=== PATIENT | male | born 1970 | race African-American/Black ===

== ENCOUNTER 2019-10-19 20:32 | Emergency (ER) | payer OTHER ==
[~2019-10-19] VITALS: Ht 182.9 cm; Wt 94.8 kg
[~2019-10-19 20:32] MED LIST: ABILIFY ORAL; ABILIFY10 MG ORAL; PRILOSEC10 M1 ORAL; SEROQUEL25 MG ORAL; SEROQUEL50 MG ORAL; ZOFRAN4 MG ORAL; ZOLOFT25 MG ORAL
--- NOTE | 2019-10-19 20:50 | NUR ---
ED Nurse Note: Recieved pt BIBA from[facility] with c/o etoh abuse, pt is awake, alert and oriented x 4, pt c/o severe abdominal pain at 10/10, states is constant and burning feeling, pt deneis cp, sob, or any toher complaitns, pt is under the influence but very pleasant and cooperative, will resume care as ordered and closely monitor.
--- NOTE | 2019-10-19 21:02 | Emergency Room Report ---
History of Present Illness General Chief Complaint: Pain Source: Patient, EMS Present Illness HPI Patient presents with 3 days of abdominal pain. Is been vomiting. He has been drinking alcohol also. He says that in the past he has had pain like this before. He reports that it is his liver. He rates the pain 10/10 at this time and constant. He denies any diarrhea. Patient has been seen here in the past for alcohol abuse and epigastric pain. Prior CT was 2013 and normal aside from fatty liver. No fevers, chills, sore throat, chest pain, palpitations, dysuria, shortness of breath, joint pain, rashes, depression, anxiety, visual changes, dizziness, headache. Allergies: Coded Allergies: No Known Allergies (Unverified , 11/20/12) COVID-19 Screening Contact w/high risk pt: No Recent Travel to affected area: No Experienced COVID-19 symptoms?: No Patient History Past Medical History: see triage record, old chart reviewed Social History: Reports: smoking, alcohol use, drug use Reviewed Nursing Documentation: PMH: Agreed; PSxH: Agreed Nursing Documentation-PMH Hx Hypertension: Yes Physical Exam Vital Signs Date Time Temp Pulse Resp B/P (MAP) Pulse Ox O2 Delivery O2 Flow Rate FiO2 10/19/19 20:36 97.9 109 18 168/103 (124) 98 Medical Decision Making Diagnostic Impression: Primary Impression: Abdominal pain Qualified Codes: R10.9 - Unspecified abdominal pain Additional Impression: Alcohol abuse ER Course Patient presents with 3 days of abdominal pain with alcohol use. Differential includes gastritis, pancreatitis, gastroenteritis, diverticulitis amongst others. Patient evaluated with EKG, chest x-ray and CT of the abdomen. Patient treated with IV hydration and analgesia with Reglan and Benadryl. EKG sinus rhythm rate 98 right bundle branch block Difficult IV. Will give IM meds. Patient sleeping without abdominal pain. Abdomen soft. Tolerating oral intake. Discussed findings and treatment plan. Patient stable for outpatient observation and treatment. Prior to discharge patient started vomiting. Zofran given. Advised patient to return if continued vomiting or not doing well. Laboratory Tests Test 10/19/19 21:30 10/19/19 22:40 Urine Color Pale yellow Urine Appearance Clear Urine pH 6 (4.5-8.0) Urine Specific [place] 1.015 (1.005-1.035) Urine Protein Negative (NEGATIVE) Urine Glucose (UA) Negative (NEGATIVE) Urine Ketones Negative (NEGATIVE) Urine Blood Negative (NEGATIVE) Urine Nitrite Negative (NEGATIVE) Urine Bilirubin Negative (NEGATIVE) Urine Urobilinogen Normal MG/DL (0.0-1.0) Urine Leukocyte Esterase Negative (NEGATIVE) Urine Opiates Screen Negative (NEGATIVE) Urine Barbiturates Screen Negative (NEGATIVE) Phencyclidine (PCP) Screen Negative (NEGATIVE) Urine Amphetamines Screen Negative (NEGATIVE) Urine Benzodiazepines Screen Positive (NEGATIVE) H Urine Cocaine Screen Negative (NEGATIVE) Urine Marijuana (THC) Screen Negative (NEGATIVE) White Blood Count 4.2 K/UL (4.8-10.8) L Red Blood Count 4.20 M/UL (4.70-6.10) L Hemoglobin 13.2 G/DL (14.2-18.0) L Hematocrit 41.0 % (42.0-52.0) L Mean Corpuscular Volume 97 FL (80-99) Mean Corpuscular Hemoglobin 31.3 PG (27.0-31.0) H Mean Corpuscular Hemoglobin Concent 32.1 G/DL (32.0-36.0) Red Cell Distribution Width 15.2 % (11.6-14.8) H Platelet Count 250 K/UL (150-450) Mean Platelet Volume 7.1 FL (6.5-10.1) Neutrophils (%) (Auto) 33.8 % (45.0-75.0) L Lymphocytes (%) (Auto) 52.1 % (20.0-45.0) H Monocytes (%) (Auto) 9.8 % (1.0-10.0) Eosinophils (%) (Auto) 1.0 % (0.0-3.0) Basophils (%) (Auto) 3.3 % (0.0-2.0) H Prothrombin Time 10.7 SEC (9.30-11.50) Prothrombin Time INR 1.0 (0.9-1.1) Activated Partial Thromboplast Time 33 SEC (23-33) Sodium Level 145 MMOL/L (136-145) Potassium Level 3.9 MMOL/L (3.5-5.1) Chloride Level 107 MMOL/L (98-107) Carbon Dioxide Level 25 MMOL/L (21-32) Anion Gap 13 mmol/L (5-15) Blood Urea Nitrogen 8 mg/dL (7-18) Creatinine 0.9 MG/DL (0.55-1.30) Estimated Glomerular Filtration Rate > 60 mL/min (>60) Glucose Level 87 MG/DL (74-106) Calcium Level 8.9 MG/DL (8.5-10.1) Total Bilirubin 0.4 MG/DL (0.2-1.0) Aspartate Amino Transferase (AST) 50 U/L (15-37) H Alanine Aminotransferase (ALT) 56 U/L (12-78) Alkaline Phosphatase 103 U/L (46-116) Total Creatine Kinase 1571 U/L (26-308) H Total Protein 7.9 G/DL (6.4-8.2) Albumin 4.0 G/DL (3.4-5.0) Globulin 3.9 g/dL Albumin/Globulin Ratio 1.0 (1.0-2.7) Lipase 232 U/L (73-393) Serum Alcohol 260 mg/dL EKG Diagnostic Results Rate: normal Rhythm: NSR ST Segments: no acute changes - Right bundle branch block Rhythm Strip Diag. Results EP Interpretation: yes Rhythm: NSR, no PVC's, no ectopy CT/MRI/US Diagnostic Results CT/MRI/US Diagnostic Results : Imaging Test Ordered: abd/pelvis Impression Bowel is nondilated. No diverticulitis, appendicitis, or free air. No obstructing ureteral calculi or hydronephrosis. Solid organs are otherwise unremarkable on a non-infused exam. Last Vital Signs Date Time Temp Pulse Resp B/P (MAP) Pulse Ox O2 Delivery O2 Flow Rate FiO2 10/20/19 06:10 97.8 79 15 146/85 99 Room Air Status: improved Disposition: HOME, SELF-CARE Condition: Improved Scripts Ondansetron Odt* (ZOFRAN ODT*) 4 Mg Tab.rapdis 4 MG BC EVERY 8 HOURS, #6 TAB 0 Refills Prov: Inocencio Bennett MD 10/20/19 Famotidine* (Pepcid 20mg tablet*) 20 Mg Tablet 20 MG ORAL DAILY, #20 TAB 0 Refills Prov: Inocencio Bennett MD 10/20/19 Mag Hydrox/Aluminum Hyd/Simeth (Mylanta Maximum Strength Liq) 355 Ml Oral.susp 30 ML PO Q6HR, #240 ML Prov: Inocencio Bennett MD 10/20/19 Acetaminophen (Tylenol) 325 Mg Tablet 650 MG ORAL Q6H PRN for Prn Pain/Headache/Temp > 101, #16 TAB 0 Refills Prov: Inocencio Bennett MD 10/20/19 Inocencio Bennett MD Oct 19, 2019 21:01
[2019-10-19] MEDS ORDERED: Morphine Sulfate 4mg/ml Inj (IV USE ONLY) IVP ONE (21:15)
[2019-10-19] MEDS ORDERED: Omnipaque-300 100ml vial INJ PRN (21:15)
[2019-10-19] MEDS ORDERED: Metoclopramide 10mg/2ml Inj IVP ONE (21:15)
[2019-10-19] MEDS ORDERED: DiphenhydrAMINE 50mg/ml Inj IVP ONE (21:15)
[2019-10-19 21:52] LABS: APPEARANCE,URINE CLEAR; BILIRUBIN, URINE NEGATIVE (NEGATIVE); COLOR,URINE PALE YELLOW; GLUCOSE, URINE (UA) NEGATIVE (NEGATIVE); KETONES,URINE NEGATIVE (NEGATIVE); LEUKOCYTE ESTERASE ,URINE NEGATIVE (NEGATIVE); NITRITE,URINE NEGATIVE (NEGATIVE); PH,URINE 6 (4.5-8.0); PROTEIN,URINE NEGATIVE (NEGATIVE); UROBILINOGEN,URINE NORMAL MG/DL (0.0-1.0)
[2019-10-19] MEDS ORDERED: Morphine Sulfate 2mg/ml Inj(IV/IM USE ONLY) IM ONE (22:00)
[2019-10-19 22:15] VITALS: BP 159/96
--- NOTE | 2019-10-19 22:50 | Diagnostic Imaging Report ---
INDICATION: Abdominal pain TECHNIQUE: Continuous helical transaxial imaging of the abdomen and pelvis was obtained from the lung bases to the pubic symphysis. No intravenous contrast was administered. Coronal 2-D reformats were also obtained. Automatic Exposure Control was utilized. Total Dose length Product (DLP): 609.[address] Dose Index Volume (CTDIvol): 21.7 mGy Comparison: none FINDINGS: Lungs: The visualized lung bases are clear. Liver: Unremarkable Gallbladder/biliary system: No gallstones are identified. There is no evidence of intrahepatic or extrahepatic biliary ductal dilatation. Spleen: Unremarkable Pancreas: Unremarkable Kidneys/Bladder: There is no hydronephrosis or nephrolithiasis. There is a rounded 2.3 cm hypodensity in the left kidney which may be cystic. The urinary bladder is unremarkable.. Adrenal glands: Unremarkable Bowel: Appendix is normal. There is no evidence of bowel dilatation. Aorta/IVC: Unremarkable Peritoneum: There is no free fluid. Bones: Unremarkable IMPRESSION: No acute findings. Left renal hypodensity which may be cystic but requires evaluation with ultrasound or contrast examination for confirmation. Evaluation of this is limited on the current study. [facility] has communicated the preliminary results to the Emergency Department. Their findings are largely concordant with this report. Note: Evaluation of solid organs is limited on non contrast imaging. The CT scanner at [facility] is accredited by the [employer] and the scans are performed using dose optimization techniques as appropriate to a performed exam including Automatic Exposure control.
--- NOTE | 2019-10-19 23:00 | NUR ---
ED Nurse Note: Pt medicated as ordered, all imaging completed, labs sent, unable to obtain IV line by all nurses and MD changed orders to PO, pt continues to rest in bed, remains under the influence, using urinal, [place] cp, medicated for abd pain, will continue to closely monitor and d/c pt in am when more sober and safe, pt denies being homeless and gave address.
[2019-10-19 23:08] LABS: BASOPHILS % (AUTO) 3.3 % (0.0-2.0); HEMOGLOBIN 13.2 G/DL (14.2-18.0); LYMPHOCYTES % (AUTO) 52.1 % (20.0-45.0); MEAN CORPUSCULAR VOLUME 97 FL (80-99); MONOCYTES % (AUTO) 9.8 % (1.0-10.0); NEUTROPHILS % (AUTO) 33.8 % (45.0-75.0); PLATELET COUNT 250 K/UL (150-450); RED CELL DISTRIBUTION WIDTH 15.2 % (11.6-14.8); WHITE BLOOD COUNT 4.2 K/UL (4.8-10.8)
[2019-10-19 23:19] LABS: ANION GAP 13 mmol/L (5-15); BLOOD UREA NITROGEN 8 mg/dL (7-18); CALCIUM 8.9 MG/DL (8.5-10.1); CARBON DIOXIDE 25 MMOL/L (21-32); CHLORIDE 107 MMOL/L (98-107); CREATININE 0.9 MG/DL (0.55-1.30); POTASSIUM 3.9 MMOL/L (3.5-5.1); SODIUM 145 MMOL/L (136-145)
[2019-10-19 23:33] LABS: ALANINE AMINOTRANSFERASE 56 U/L (12-78); ALKALINE PHOSPHATASE 103 U/L (46-116); ASPARTATE AMINO TRANSFERASE 50 U/L (15-37); BILIRUBIN,TOTAL 0.4 MG/DL (0.2-1.0); CREATINE KINASE 1571 U/L (26-308)
[2019-10-20] MEDS ORDERED: FAMOTIDINE20 MG ORAL
[2019-10-20] MEDS ORDERED: TYLENOL325 MG ORAL
[2019-10-20] MEDS ORDERED: MYLANTA MAXIMU355 ML PO
[2019-10-20 01:00] VITALS: BP 144/84
--- NOTE | 2019-10-20 03:00 | NUR ---
ED Nurse Note: Pt sleeping, arouses easily to verbal stimuli, denies pain, no sob or labored breathing, v/s stable, will d/c in am when buses running.
[2019-10-20 04:00] VITALS: BP 139/91
[2019-10-20] MEDS ORDERED: Mylanta II UD 30ml ORAL ONE (05:30)
[2019-10-20 05:45] VITALS: BP 146/85
[2019-10-20] MEDS ORDERED: ONDANSETRON ODT4 MG BC (05:55)
[2019-10-20 06:10] VITALS: BP 146/85
--- NOTE | 2019-10-20 06:10 | NUR ---
ER DISCHARGE NOTE: Patient is cleared to be discharged per ERMD, pt is aox4, on room air, with stable vital signs. pt was given dc and prescription instructions, pt was able to verbalize understanding, pt id band removed without complications. pt is able to ambulate with steady gait. pt took all belongings.
== END 2019-10-20 06:10 | disposition home or self-care (01) ==
LOC: EDBD 20:32 → EMR 21:24
DX: R10.9 Unspecified abdominal pain (principal); F10.10 Alcohol abuse, uncomplicated; I10 Essential (primary) hypertension; F17.200 Nicotine dependence, unspecified, uncomplicated
CPT/HCPCS: 36415; 74176; 80053; 80307; 81003; 82550; 83690; 85025; 85610; 85730; 93005; 96372; G0480; J2270; Z7502; 99284; J2765

== ENCOUNTER 2019-10-24 19:49 | Emergency (ER) | payer OTHER ==
[~2019-10-24] VITALS: Ht 188 cm; Wt 108.9 kg
[~2019-10-24 19:49] MED LIST changes: +FAMOTIDINE20 MG ORAL; +MYLANTA MAXIMU355 ML PO; +ONDANSETRON ODT4 MG BC; +TYLENOL325 MG ORAL
[2019-10-24 19:53] VITALS: BP 145/90
--- NOTE | 2019-10-24 19:53 | NUR ---
ED Nurse Note: Patient MARIA ISABEL CARREON from street c/o abdominal pain started today ater eating and drinking beers. Reports vomiting x2, nausea and dark stool x2. Afebrile. Not in any distress. VSS. Will cont to monitor.
--- NOTE | 2019-10-24 19:55 | Emergency Room Report ---
History of Present Illness General Chief Complaint: Abdominal Pain Source: Patient, EMS Present Illness HPI Patient is a 49-year-old male brought in by EMS after increased epigastric pain. Patient reports having a recent alcohol intake. He states he has epigastric pain as well as diffuse abdominal distention. Denies prior history of similar symptoms in the past. He had reportedly drank 2 beers as well as hot dog immediately prior to onset of pain. Denies any vomiting. Denies any fever. Allergies: Coded Allergies: No Known Allergies (Unverified , 11/20/12) COVID-19 Screening Contact w/high risk pt: No Recent Travel to affected area: No Experienced COVID-19 symptoms?: No Patient History Past Medical History: see triage record Reviewed Nursing Documentation: PMH: Agreed; PSxH: Agreed Nursing Documentation-PMH Hx Hypertension: Yes Review of Systems All Other Systems: negative except mentioned in HPI Physical Exam Vital Signs Date Time Temp Pulse Resp B/P (MAP) Pulse Ox O2 Delivery O2 Flow Rate FiO2 10/24/19 19:36 97.2 75 15 145/90 (108) 98 Room Air Sp02 EP Interpretation: reviewed, normal General Appearance: normal inspection, well appearing, no apparent distress, alert, GCS 15 Head: atraumatic ENT: normal ENT inspection, hearing grossly normal, normal voice Neck: normal inspection, full range of motion, supple, no bony tend Respiratory: normal inspection, lungs clear, normal breath sounds, no respiratory distress, no retraction, no wheezing Cardiovascular #1: regular rate, rhythm, no edema Gastrointestinal: normal inspection, normal bowel sounds, non tender, soft, no guarding, no hernia Genitourinary: no CVA tenderness Musculoskeletal: normal inspection, back normal, normal range of motion Neurologic: alert, motor strength/tone normal, cash control specialist III-XII nml as tested, oriented x3, responsive, speech normal, normal inspection Psychiatric: normal inspection, judgement/insight normal, mood/affect normal Medical Decision Making Diagnostic Impression: Primary Impression: Abdominal pain Additional Impression: Alcohol abuse ER Course Patient presented for abdominal pain. Differential diagnoses included ischemic bowel, appendicitis, perforated viscus, abdominal aortic aneurysm, inferior myocardial infarction, viral gastroenteritis among others.Because patient's complexity imaging studies, and laboratory testing ordered. Laboratory testing showed normal electrolytes. Lipase was normal White blood count was normal, hemoglobin is adequate Patient was given pain medications. Patient's pain appears to be alcohol related gastritis. Patient appears to be stable for close outpatient follow up. Patient given prescription for medication for symptomatic treatment. The patient is advised to follow up with primary care doctor in 1-2 days. Patient is advised to return if any worsening condition or if any changes in status that are concerning. This report is dictated with [employer] mechanical service representative software which may occasionally lead to discrepancies related to use of this software. Labs Test 10/24/19 20:13 White Blood Count 5.6 K/UL (4.8-10.8) Red Blood Count 4.18 M/UL (4.70-6.10) Hemoglobin 13.0 G/DL (14.2-18.0) Hematocrit 41.2 % (42.0-52.0) Mean Corpuscular Volume 99 FL (80-99) Mean Corpuscular Hemoglobin 31.1 PG (27.0-31.0) Mean Corpuscular Hemoglobin Concent 31.5 G/DL (32.0-36.0) Red Cell Distribution Width 15.1 % (11.6-14.8) Platelet Count 196 K/UL (150-450) Mean Platelet Volume 6.5 FL (6.5-10.1) Neutrophils (%) (Auto) 54.7 % (45.0-75.0) Lymphocytes (%) (Auto) 32.7 % (20.0-45.0) Monocytes (%) (Auto) 8.0 % (1.0-10.0) Eosinophils (%) (Auto) 1.4 % (0.0-3.0) Basophils (%) (Auto) 3.1 % (0.0-2.0) Sodium Level 143 MMOL/L (136-145) Potassium Level 3.7 MMOL/L (3.5-5.1) Chloride Level 106 MMOL/L (98-107) Carbon Dioxide Level 24 MMOL/L (21-32) Anion Gap 13 mmol/L (5-15) Blood Urea Nitrogen 14 mg/dL (7-18) Creatinine 0.7 MG/DL (0.55-1.30) Estimat Glomerular Filtration Rate > 60 mL/min (>60) Glucose Level 111 MG/DL (74-106) Calcium Level 8.8 MG/DL (8.5-10.1) Total Bilirubin 0.2 MG/DL (0.2-1.0) Aspartate Amino Transf (AST/SGOT) 47 U/L (15-37) Alanine Aminotransferase (ALT/SGPT) 35 U/L (12-78) Alkaline Phosphatase 101 U/L (46-116) Troponin I 0.011 ng/mL (0.000-0.056) Total Protein 7.6 G/DL (6.4-8.2) Albumin 3.8 G/DL (3.4-5.0) Globulin 3.8 g/dL Albumin/Globulin Ratio 1.0 (1.0-2.7) Lipase 381 U/L (73-393) Last Vital Signs Date Time Temp Pulse Resp B/P (MAP) Pulse Ox O2 Delivery O2 Flow Rate FiO2 10/24/19 19:36 97.2 75 15 145/90 (108) 98 Room Air Status: improved Disposition: HOME, SELF-CARE Condition: Stable Scripts Ondansetron (Zofran) 4 Mg Tablet 4 MG ORAL Q6H PRN for Nausea & Vomiting, #20 TAB Prov: Navin Gould MD 10/24/19 Omeprazole Magnesium (PRILOSEC OTC) 20 Mg Tablet. 20 MG ORAL DAILY, #30 TAB Prov: Navin Gould MD 10/24/19 Navin Gould MD Oct 24, 2019 19:54
[2019-10-24] MEDS ORDERED: Mylanta II UD 30ml ORAL ONE (20:00)
[2019-10-24] MEDS ORDERED: Dicyclomine HCl 10mg/5ml oral soln ORAL ONE (20:00)
[2019-10-24] MEDS ORDERED: Lidocaine 2% Visc 15ml soln ORAL ONE (20:00)
[2019-10-24] MEDS ORDERED: Metoclopramide 10mg/2ml Inj IVP ONE (20:00)
--- NOTE | 2019-10-24 20:00 | NUR ---
ED Nurse Note: Blood specimen collected and sent to lab.
[2019-10-24] MEDS ORDERED: HYDROcodone/Acetamin 5/325 tab ORAL ONE (20:45)
[2019-10-24 20:52] LABS: BASOPHILS % (AUTO) 3.1 % (0.0-2.0); EOSINOPHILS % (AUTO) 1.4 % (0.0-3.0); HEMATOCRIT 41.2 % (42.0-52.0); LYMPHOCYTES % (AUTO) 32.7 % (20.0-45.0); MEAN CORPUSCULAR VOLUME 99 FL (80-99); NEUTROPHILS % (AUTO) 54.7 % (45.0-75.0); PLATELET COUNT 196 K/UL (150-450); RED BLOOD COUNT 4.18 M/UL (4.70-6.10); RED CELL DISTRIBUTION WIDTH 15.1 % (11.6-14.8); WHITE BLOOD COUNT 5.6 K/UL (4.8-10.8)
[2019-10-24] MEDS ORDERED: PRILOSEC OTC20 MG ORAL (21:08)
[2019-10-24] MEDS ORDERED: ZOFRAN4 M1 ORAL (21:08)
[2019-10-24 21:20] LABS: ANION GAP 13 mmol/L (5-15); BLOOD UREA NITROGEN 14 mg/dL (7-18); CALCIUM 8.8 MG/DL (8.5-10.1); CARBON DIOXIDE 24 MMOL/L (21-32); CHLORIDE 106 MMOL/L (98-107); CREATININE 0.7 MG/DL (0.55-1.30); POTASSIUM 3.7 MMOL/L (3.5-5.1); SODIUM 143 MMOL/L (136-145)
[2019-10-24 21:24] LABS: ALANINE AMINOTRANSFERASE 35 U/L (12-78); ALBUMIN 3.8 G/DL (3.4-5.0); ALKALINE PHOSPHATASE 101 U/L (46-116); ASPARTATE AMINO TRANSFERASE 47 U/L (15-37); BILIRUBIN,TOTAL 0.2 MG/DL (0.2-1.0)
[2019-10-24 21:30] VITALS: BP 135/77
--- NOTE | 2019-10-24 21:30 | NUR ---
ED Nurse Note: Pt cleared by ERMD for discharge. DC instructions/prescription was given and explained to pt and verbalized understanding of teachings. All medical deviecs such as ID band and IV removed. Pt is AAO x4, ambulatory and left with all personal belongings.
--- NOTE | 2019-10-25 11:56 | Diagnostic Imaging Report ---
Indication: Abdominal pain Comparison: None Single view of the abdomen obtained Findings: Bowel gas pattern is nonspecific. No mass, ectopic calcifications, or abnormal gas collections are identified. The bones are unremarkable. Impression: No acute findings
== END 2019-10-24 21:30 | disposition home or self-care (01) ==
LOC: EDBD 19:49 → EMR 20:00
DX: R10.13 Epigastric pain (principal); F10.10 Alcohol abuse, uncomplicated; I10 Essential (primary) hypertension
CPT/HCPCS: 36415; 74018; 80053; 83690; 84484; 85025; 96374; 96375; J2765; S0028; Z7502; 99284

== ENCOUNTER 2020-04-04 21:26 | Emergency (ER) | payer OTHER ==
[~2020-04-04] VITALS: Ht 185.4 cm; Wt 117.9 kg
[~2020-04-04 21:26] MED LIST changes: +PRILOSEC OTC20 MG ORAL; +ZOFRAN4 M1 ORAL
[2020-04-04] MEDS ORDERED: Dicyclomine HCl 10mg/5ml oral soln ORAL ONE (22:00)
[2020-04-04] MEDS ORDERED: Mylanta II UD 30ml ORAL ONE (22:00)
[2020-04-04] MEDS ORDERED: Lidocaine 2% Visc 15ml soln ORAL ONE (22:00)
--- NOTE | 2020-04-04 22:00 | Emergency Room Report ---
History of Present Illness General Chief Complaint: Abdominal Pain Source: Patient Present Illness HPI Disclaimer: Please note that this report is being documented using DRAGON technology. This can lead to erroneous entry secondary to incorrect interpretation by the dictating instrument. HPI: This a 45-year-old male history of schizophrenia presenting for evaluation of abdominal pain. He arrived by EMS. Patient history is vague. He states he has "all over" abdominal pain. Cannot recall when it started, cannot recall where it started. Denies vomiting, fever, nausea, diarrhea. He reports intermittent dysuria. Denies drainage from the penis, testicular pain, hematuria, flank pain. No prior history of kidney stones or abdominal surgeries. Denies chest pain, shortness of breath, cough, headaches. PMH: Schizophrenia PSH: Cervical disc fusion Allergies: Denied Social Hx: Denied Allergies: Coded Allergies: No Known Allergies (Unverified , 11/20/12) COVID-19 Screening Contact w/high risk pt: No Recent Travel to affected area: No Experienced COVID-19 symptoms?: No COVID-19 Testing performed RESEARCH METHODOLOGIST: No Nursing Documentation-PMH Hx Hypertension: Yes History Of Psychiatric Problem: Yes Review of Systems All Other Systems: negative except mentioned in HPI Physical Exam Vital Signs Date Time Temp Pulse Resp B/P (MAP) Pulse Ox O2 Delivery O2 Flow Rate FiO2 04/04/20 21:25 98.4 100 20 140/98 (112) 99 Room Air General: Awake and alert, no acute distress HEENT: NC/AT. EOMI. Cardiovascular: RRR. S1 and S2 normal. No murmur appreciated Resp: Normal work of breathing. No cough, wheezing or crackles appreciated Abdomen: Abdomen is soft, nondistended. Diffusely tender to palpation however patient wincing in pain prior to my touching of the abdomen. On repeated palpation in the same quadrants there is no tenderness. Fluctuating exam. Skin: Intact. No abrasions, laceration or rash over the exposed skin MSK: Normal tone and bulk. Moving all extremities. No obvious deformity. Neuro: Awake and alert. Mentating appropriately. Medical Decision Making Diagnostic Impression: Primary Impression: Alcohol intoxication Additional Impression: Abdominal pain ER Course Is a 50-year-old male presenting for evaluation of abdominal pain. He arrives with stable vital signs and no acute distress. Differential includes but not limited to gastritis, gastroenteritis, cholecystitis, pancreatitis, intoxication , viral syndrome among others. Patient's physical exam is fluctuating as sometimes he has pain all over the abdomen otherwise he does not. His history is vague and changing. Will order labs and treat with GI cocktail and famotidine. Do not see need for emergent imaging at this time but will reevaluate frequently. 0100: Labs have returned within normal limits. No evidence of acute pancreatitis. He is intoxicated with elevated alcohol level. On reevaluation the patient is sleeping comfortably. Will start the patient on thiamine, folate. Potassium was repleted as it was just below normal values. Referred to outpatient clinic. Will allow to metabolize in the ED and discharged once he is clinically sober. Laboratory Tests Test 04/04/20 23:03 04/04/20 23:12 White Blood Count 3.8 K/UL (4.8-10.8) L Red Blood Count 4.26 M/UL (4.70-6.10) L Hemoglobin 13.0 G/DL (14.2-18.0) L Hematocrit 40.5 % (42.0-52.0) L Mean Corpuscular Volume 95 FL (80-99) Mean Corpuscular Hemoglobin 30.6 PG (27.0-31.0) Mean Corpuscular Hemoglobin Concent 32.2 G/DL (32.0-36.0) Red Cell Distribution Width 13.8 % (11.6-14.8) Platelet Count 205 K/UL (150-450) Mean Platelet Volume 6.2 FL (6.5-10.1) L Neutrophils (%) (Auto) 41.7 % (45.0-75.0) L Lymphocytes (%) (Auto) 44.3 % (20.0-45.0) Monocytes (%) (Auto) 9.7 % (1.0-10.0) Eosinophils (%) (Auto) 0.9 % (0.0-3.0) Basophils (%) (Auto) 3.5 % (0.0-2.0) H Sodium Level 146 MMOL/L (136-145) H Potassium Level 3.2 MMOL/L (3.5-5.1) L Chloride Level 108 MMOL/L (98-107) H Carbon Dioxide Level 28 MMOL/L (21-32) Anion Gap 10 mmol/L (5-15) Blood Urea Nitrogen 8 mg/dL (7-18) Creatinine 0.9 MG/DL (0.55-1.30) Estimated Glomerular Filtration Rate > 60 mL/min (>60) Glucose Level 97 MG/DL (74-106) Calcium Level 8.2 MG/DL (8.5-10.1) L Magnesium Level 2.2 MG/DL (1.8-2.4) Total Bilirubin 0.7 MG/DL (0.2-1.0) Aspartate Amino Transferase (AST) 40 U/L (15-37) H Alanine Aminotransferase (ALT) 42 U/L (12-78) Alkaline Phosphatase 95 U/L (46-116) Total Protein 7.6 G/DL (6.4-8.2) Albumin 4.0 G/DL (3.4-5.0) Globulin 3.6 g/dL Albumin/Globulin Ratio 1.1 (1.0-2.7) Lipase 165 U/L (73-393) Serum Alcohol 335 mg/dL Urine Color Yellow Urine Appearance Clear Urine pH 5 (4.5-8.0) Urine Specific [place] 1.015 (1.005-1.035) Urine Protein 1+ (NEGATIVE) H Urine Glucose (UA) Negative (NEGATIVE) Urine Ketones Negative (NEGATIVE) Urine Blood Negative (NEGATIVE) Urine Nitrite Negative (NEGATIVE) Urine Bilirubin Negative (NEGATIVE) Urine Urobilinogen Normal MG/DL (0.0-1.0) Urine Leukocyte Esterase Negative (NEGATIVE) Urine RBC 0 /HPF (0 - 0) Urine WBC 0-2 /HPF (0 - 0) Urine Squamous Epithelial Cells None /LPF (NONE/OCC) Urine Bacteria Occasional /HPF (NONE) Urine Opiates Screen Negative (NEGATIVE) Urine Barbiturates Screen Negative (NEGATIVE) Phencyclidine (PCP) Screen Negative (NEGATIVE) Urine Amphetamines Screen Negative (NEGATIVE) Urine Benzodiazepines Screen Negative (NEGATIVE) Urine Cocaine Screen Negative (NEGATIVE) Urine Marijuana (THC) Screen Negative (NEGATIVE) Last Vital Signs Date Time Temp Pulse Resp B/P (MAP) Pulse Ox O2 Delivery O2 Flow Rate FiO2 04/04/20 21:25 98.4 100 20 140/98 (112) 99 Room Air Disposition: HOME, SELF-CARE Condition: Stable Scripts Thiamine Hcl* (VITAMIN B-1*) 100 Mg Tablet 100 MG ORAL DAILY, #30 TAB 0 Refills Prov: Krish Wall MD 04/04/20 Folic Acid* (FOLIC ACID*) 1 Mg Tablet 1 MG ORAL DAILY for 30 Days, #30 TAB Prov: Krish Wall MD 04/04/20 Famotidine* (Pepcid 20mg tablet*) 20 Mg Tablet 20 MG ORAL DAILY, #30 TAB 0 Refills Prov: Krish Wall MD 04/04/20 Krish Wall MD Apr 04, 2020 22:00
[2020-04-04 22:14] VITALS: BP 133/92
[2020-04-04] MEDS ORDERED: Ketorolac 30mg Inj IM ONE (23:00)
[2020-04-04 23:06] LABS: BASOPHILS % (AUTO) 3.5 % (0.0-2.0); EOSINOPHILS % (AUTO) 0.9 % (0.0-3.0); HEMATOCRIT 40.5 % (42.0-52.0); LYMPHOCYTES % (AUTO) 44.3 % (20.0-45.0); MEAN CORPUSCULAR VOLUME 95 FL (80-99); MONOCYTES % (AUTO) 9.7 % (1.0-10.0); NEUTROPHILS % (AUTO) 41.7 % (45.0-75.0); PLATELET COUNT 205 K/UL (150-450); RED BLOOD COUNT 4.26 M/UL (4.70-6.10); RED CELL DISTRIBUTION WIDTH 13.8 % (11.6-14.8); WHITE BLOOD COUNT 3.8 K/UL (4.8-10.8)
[2020-04-04 23:24] LABS: APPEARANCE,URINE CLEAR; BILIRUBIN, URINE NEGATIVE (NEGATIVE); GLUCOSE, URINE (UA) NEGATIVE (NEGATIVE); KETONES,URINE NEGATIVE (NEGATIVE); LEUKOCYTE ESTERASE ,URINE NEGATIVE (NEGATIVE); NITRITE,URINE NEGATIVE (NEGATIVE); PH,URINE 5 (4.5-8.0); PROTEIN,URINE 1+ (NEGATIVE); UROBILINOGEN,URINE NORMAL MG/DL (0.0-1.0)
[2020-04-04 23:24] LABS: ANION GAP 10 mmol/L (5-15); BLOOD UREA NITROGEN 8 mg/dL (7-18); CALCIUM 8.2 MG/DL (8.5-10.1); CARBON DIOXIDE 28 MMOL/L (21-32); CHLORIDE 108 MMOL/L (98-107); CREATININE 0.9 MG/DL (0.55-1.30); POTASSIUM 3.2 MMOL/L (3.5-5.1); SODIUM 146 MMOL/L (136-145)
[2020-04-04 23:28] LABS: ALANINE AMINOTRANSFERASE 42 U/L (12-78); ALBUMIN/GLOBULIN RATIO 1.1 (1.0-2.7); ALKALINE PHOSPHATASE 95 U/L (46-116); ASPARTATE AMINO TRANSFERASE 40 U/L (15-37); BILIRUBIN,TOTAL 0.7 MG/DL (0.2-1.0)
[2020-04-04 23:38] LABS: COLOR,URINE YELLOW
[2020-04-04] MEDS ORDERED: FOLIC ACID1 MG ORAL (23:39)
[2020-04-04] MEDS ORDERED: FAMOTIDINE20 MG ORAL (23:39)
[2020-04-04] MEDS ORDERED: VITAMIN B-1100 MG ORAL (23:39)
[2020-04-05 05:10] VITALS: BP 132/79
== END 2020-04-05 05:10 | disposition home or self-care (01) ==
LOC: EDBD 21:26 → EMR 22:07
DX: R10.9 Unspecified abdominal pain (principal); F10.129 Alcohol abuse with intoxication, unspecified; I10 Essential (primary) hypertension; F20.9 Schizophrenia, unspecified; Z98.1 Arthrodesis status
CPT/HCPCS: 36415; 80053; 80307; 81003; 83690; 83735; 85025; 96372; G0480; J1885; Z7502; 99284; J2405; J8499

== ENCOUNTER 2020-06-06 02:16 | Emergency (ER) | payer OTHER ==
[~2020-06-06] VITALS: Ht 175.3 cm; Wt 79.4 kg
[~2020-06-06 02:16] MED LIST changes: +FOLIC ACID1 MG ORAL; +VITAMIN B-1100 MG ORAL
[2020-06-06 02:35] VITALS: BP 139/89
--- NOTE | 2020-06-06 02:36 | Emergency Room Report ---
History of Present Illness General Chief Complaint: Abdominal Pain Source: Patient, Medical Record, EMS Present Illness HPI Is a 50-year-old male with a history of alcohol abuse. He is also homeless. He presents with chief plaint abdominal pain. He called 911. He has been drinking tonight. Pain is diffuse in nature. This is a chronic issue. Is been to the [facility] and other hospital for this before. The pain is diffuse. Nothing made it better. Nothing made it worse. History is limited because he just said that he wants to sleep. He does not want any thing to be done. 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 Patient History Past Medical History: see triage record, old chart reviewed Past Surgical History: other Pertinent Family History: none Social History: Reports: alcohol use Immunizations: other Reviewed Nursing Documentation: PMH: Agreed; PSxH: Agreed Nursing Documentation-PMH Past Medical History: No History, Except For Hx Hypertension: Yes History Of Psychiatric Problem: Yes Hx Seizures: Yes Review of Systems Gastrointestinal: Reports: abdominal pain All Other Systems: limited - Secondary to intoxication Physical Exam Vital Signs Date Time Temp Pulse Resp B/P (MAP) Pulse Ox O2 Delivery O2 Flow Rate FiO2 06/06/20 02:17 98.1 108 22 139/89 (106) 99 Room Air Vitals unremarkable Sp02 EP Interpretation: reviewed, normal General Appearance: well appearing, no apparent distress, alert Head: normocephalic, atraumatic Eyes: bilateral eye PERRL, bilateral eye EOMI ENT: hearing grossly normal, normal pharynx Neck: full range of motion, supple, no meningismus Respiratory: chest non-tender, lungs clear, normal breath sounds Cardiovascular #1: regular rate, rhythm, no murmur Gastrointestinal: normal bowel sounds, no mass, no organomegaly, no bruit, non- distended, tenderness - Mild, diffuse Musculoskeletal: back normal, normal range of motion, gait/station normal Psychiatric: mood/affect normal Medical Decision Making Homeless Attestation I, The treating physician, Dr Riley James, has assessed and agrees that patient is medically stable for discharge to an outpatient disposition. Diagnostic Impression: Primary Impression: Abdominal pain Qualified Codes: R10.84 - Generalized abdominal pain Additional Impression: Alcohol intoxication Qualified Codes: F10.920 - Alcohol use, unspecified with intoxication, uncomplicated ER Course This patient presents with abdominal pain and alcohol abuse with intoxication. He is sleeping comfortably. He does not want anything to be done. Recent CT scan just showed fatty liver. He has IV eric on his extremities and also EKG leave eric on his chest and abdomen from other hospital visits. Patient slept through the night. He is now awake. Eating and drinking without any problem. Will discharge home. Last Vital Signs Date Time Temp Pulse Resp B/P (MAP) Pulse Ox O2 Delivery O2 Flow Rate FiO2 06/06/20 02:17 98.1 108 22 139/89 (106) 99 Room Air Status: improved Disposition: OTH-HOMELESS Condition: Stable Referrals: [facility],REFERRING (PCP) Additional Instructions: Abstain from alcohol. Go to rehab. Follow-up with your doctor in 7 days. Return if worse. Riley James MD Jun 06, 2020 02:36
[2020-06-06 06:00] VITALS: BP 139/89
== END 2020-06-06 06:00 | disposition other institution (70) ==
LOC: EDUNIT# 02:16 → EDBD 02:16 → EMR 02:32
DX: R10.84 Generalized abdominal pain (principal); F10.120 Alcohol abuse with intoxication, uncomplicated; I10 Essential (primary) hypertension; Z59.0 Homelessness
CPT/HCPCS: 99282

== ENCOUNTER 2020-07-10 20:12 | Emergency (ER) | payer OTHER ==
[~2020-07-10] VITALS: Ht 172.7 cm; Wt 72.6 kg
[2020-07-10 20:20] VITALS: BP 172/96
--- NOTE | 2020-07-10 20:20 | NUR ---
Nurse Note: Pt brought in by ambulance 813 c/o chronic abd pain since but pain getting worse. Pt denies n/v. Denies blood in urine and emesis. Pt stated he was drinking ETOH all day. Pt ambultory with assistance, able to urinate.
--- NOTE | 2020-07-10 20:42 | Emergency Room Report ---
History of Present Illness General Chief Complaint: Abdominal Pain Present Illness HPI Patient is a 50-year-old male who presents for increased generalized abdominal pain. Patient had previous history of alcohol abuse. Reportedly had increased pain throughout his entire abdomen. Previous ER visits for similar type symptoms. No exacerbating or alleviating factors. Patient reports drinking throughout the day. Patient was brought in by EMS. 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: No (Navin Gould MD) Patient History Past Medical History: see triage record Reviewed Nursing Documentation: PMH: Agreed; PSxH: Agreed (Navin Gould MD) Nursing Documentation-PMH Hx Hypertension: Yes History Of Psychiatric Problem: Yes - psych Hx Seizures: Yes (Navin Gould MD) Review of Systems All Other Systems: negative except mentioned in HPI (Navin Gould MD) Physical Exam Vital Signs Date Time Temp Pulse Resp B/P (MAP) Pulse Ox O2 Delivery O2 Flow Rate FiO2 07/10/20 20:15 98.4 100 16 172/96 (121) 98 Room Air Sp02 EP Interpretation: reviewed, normal General Appearance: normal inspection, well appearing, no apparent distress, alert, GCS 15, obese Head: atraumatic ENT: normal ENT inspection, hearing grossly normal, normal voice Neck: normal inspection, full range of motion, supple, no bony tend Respiratory: normal inspection, lungs clear, normal breath sounds, no resp iratory distress, no retraction, no wheezing Cardiovascular #1: regular rate, rhythm, no edema Gastrointestinal: normal inspection, normal bowel sounds, non tender, soft, no guarding, no hernia Genitourinary: no CVA tenderness Musculoskeletal: normal inspection, back normal, normal range of motion Neurologic: alert, motor strength/tone normal, 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 (Riley James MD) Diagnostic Impression: Primary Impression: Abdominal pain Qualified Codes: R10.84 - Generalized abdominal pain Additional Impressions: Alcohol abuse Alcohol intoxication Qualified Codes: F10.920 - Alcohol use, unspecified with intoxication, uncomplicated ER Course Patient presented for generalized abdominal pain. Differential diagnosis include was not limited to gastritis, peptic ulcer disease, pancreatitis among others. Because of complexity of patient's case laboratory tests and imaging studies were ordered. Patient has prior history of recent alcohol abuse and patient's abdominal pain has been evaluated in the past with CT imaging which showed only fatty liver. Laboratory testing was ordered. Patient given IV acid blockers as well as IV fluids. Labs Test 07/10/20 20:44 White Blood Count 5.4 K/UL (4.8-10.8) Red Blood Count 4.02 M/UL (4.70-6.10) Hemoglobin 12.1 G/DL (14.2-18.0) Hematocrit 36.5 % (42.0-52.0) Mean Corpuscular Volume 91 FL (80-99) Mean Corpuscular Hemoglobin 30.1 PG (27.0-31.0) Mean Corpuscular Hemoglobin Concent 33.2 G/DL (32.0-36.0) Red Cell Distribution Width 15.9 % (11.6-14.8) Platelet Count 234 K/UL (150-450) Mean Platelet Volume 6.7 FL (6.5-10.1) Neutrophils (%) (Auto) 65.0 % (45.0-75.0) Lymphocytes (%) (Auto) 25.0 % (20.0-45.0) Monocytes (%) (Auto) 6.9 % (1.0-10.0) Eosinophils (%) (Auto) 0.4 % (0.0-3.0) Basophils (%) (Auto) 2.6 % (0.0-2.0) Prothrombin Time 10.9 SEC (9.30-11.50) Prothromb Time International Ratio 1.0 (0.9-1.1) Activated Partial Thromboplast Time 25 SEC (23-33) Urine Color Pale yellow Urine Appearance Clear Urine pH 7 (4.5-8.0) Urine Specific [place] 1.010 (1.005-1.035) Urine Protein Negative (NEGATIVE) Urine Glucose (UA) Negative (NEGATIVE) Urine Ketones Negative (NEGATIVE) Urine Blood 1+ (NEGATIVE) Urine Nitrite Negative (NEGATIVE) Urine Bilirubin Negative (NEGATIVE) Urine Urobilinogen Normal MG/DL (0.0-1.0) Urine Leukocyte Esterase Negative (NEGATIVE) Urine RBC 0-2 /HPF (0 - 0) Urine WBC 0 /HPF (0 - 0) Urine Squamous Epithelial Cells None /LPF (NONE/OCC) Urine Bacteria Occasional /HPF (NONE) Sodium Level 143 MMOL/L (136-145) Potassium Level 4.2 MMOL/L (3.5-5.1) Chloride Level 105 MMOL/L (98-107) Carbon Dioxide Level 27 MMOL/L (21-32) Anion Gap 11 mmol/L (5-15) Blood Urea Nitrogen 9 mg/dL (7-18) Creatinine 0.8 MG/DL (0.55-1.30) Estimat Glomerular Filtration Rate > 60 mL/min (>60) Glucose Level 111 MG/DL (74-106) Calcium Level 8.3 MG/DL (8.5-10.1) Total Bilirubin 0.4 MG/DL (0.2-1.0) Aspartate Amino Transf (AST/SGOT) 80 U/L (15-37) Alanine Aminotransferase (ALT/SGPT) 54 U/L (12-78) Alkaline Phosphatase 96 U/L (46-116) Total Protein 7.6 G/DL (6.4-8.2) Albumin 3.8 G/DL (3.4-5.0) Globulin 3.8 g/dL Albumin/Globulin Ratio 1.0 (1.0-2.7) Lipase 269 U/L (73-393) (Navin Gould MD) ER Course This patient was signed out to me. He presents with chief complaint of abdominal pain. He is also an alcoholic. He appears be intoxicated. Laboratory data is unremarkable. Patient slept through the night without any problem. When he was sleeping, I palpate his abdomen and he had no pain. No grimacing. Will discharge in the morning. (Riley James MD) Last Vital Signs Date Time Temp Pulse Resp B/P (MAP) Pulse Ox O2 Delivery O2 Flow Rate FiO2 07/10/20 20:15 98.4 100 16 172/96 (121) 98 Room Air Status: improved (Navin Gould MD) Status: improved (Riley James MD) Disposition: HOME, SELF-CARE Condition: Stable Referrals: [facility],REFERRING (PCP) Additional Instructions: Abstain from alcohol. Go to rehab. Follow-up with your doctor in 7 days. Return if worse. Navin Gould MD Jul 10, 2020 20:42 Riley James MD Jul 11, 2020 02:31
--- NOTE | 2020-07-10 20:49 | NUR ---
ED Nurse Note: Right EJ was established by Dr. Gould 22ga, blood and urine specimens were collected sent to lab
[2020-07-10 21:05] LABS: APPEARANCE,URINE CLEAR; BILIRUBIN, URINE NEGATIVE (NEGATIVE); COLOR,URINE PALE YELLOW; GLUCOSE, URINE (UA) NEGATIVE (NEGATIVE); KETONES,URINE NEGATIVE (NEGATIVE); LEUKOCYTE ESTERASE ,URINE NEGATIVE (NEGATIVE); NITRITE,URINE NEGATIVE (NEGATIVE); PH,URINE 7 (4.5-8.0); PROTEIN,URINE NEGATIVE (NEGATIVE); UROBILINOGEN,URINE NORMAL MG/DL (0.0-1.0)
[2020-07-10 21:12] LABS: BASOPHILS % (AUTO) 2.6 % (0.0-2.0); EOSINOPHILS % (AUTO) 0.4 % (0.0-3.0); HEMATOCRIT 36.5 % (42.0-52.0); HEMOGLOBIN 12.1 G/DL (14.2-18.0); MEAN CORPUSCULAR VOLUME 91 FL (80-99); MONOCYTES % (AUTO) 6.9 % (1.0-10.0); PLATELET COUNT 234 K/UL (150-450); RED BLOOD COUNT 4.02 M/UL (4.70-6.10); RED CELL DISTRIBUTION WIDTH 15.9 % (11.6-14.8); WHITE BLOOD COUNT 5.4 K/UL (4.8-10.8)
[2020-07-10 21:16] LABS: ANION GAP 11 mmol/L (5-15); BLOOD UREA NITROGEN 9 mg/dL (7-18); CALCIUM 8.3 MG/DL (8.5-10.1); CARBON DIOXIDE 27 MMOL/L (21-32); CHLORIDE 105 MMOL/L (98-107); CREATININE 0.8 MG/DL (0.55-1.30); POTASSIUM 4.2 MMOL/L (3.5-5.1); SODIUM 143 MMOL/L (136-145)
[2020-07-10 21:21] LABS: ALANINE AMINOTRANSFERASE 54 U/L (12-78); ALBUMIN 3.8 G/DL (3.4-5.0); ALKALINE PHOSPHATASE 96 U/L (46-116); ASPARTATE AMINO TRANSFERASE 80 U/L (15-37); BILIRUBIN,TOTAL 0.4 MG/DL (0.2-1.0)
[2020-07-10 22:45] VITALS: BP 171/101
--- NOTE | 2020-07-10 22:50 | NUR ---
ED Nurse Note: received report from DIONNE Hidalgo, at this time patient currently sleeping. will discharge in the morning
[2020-07-10 23:45] VITALS: BP 152/89
[2020-07-11 00:50] VITALS: BP 138/82
[2020-07-11] MEDS ORDERED: chlordiazePOXIDE 25mg Cap ORAL ONE (05:00)
[2020-07-11] MEDS ORDERED: LORazepam Inj 2mg/ml 1ml IM ONE (05:00)
[2020-07-11] MEDS ORDERED: LIBRIUM25 MG ORAL (05:02)
[2020-07-11] MEDS ORDERED: LORazepam Inj 2mg/ml 1ml IV ONE (05:15)
--- NOTE | 2020-07-11 05:30 | NUR ---
ER DISCHARGE NOTE: Patient is cleared to be discharged per ERMD, pt is aox4, on room air, with stable vital signs. pt was given dc and prescription instructions, pt was able to verbalize understanding, pt id band and iv site removed without complications. pt is able to ambulate with steady gait. pt took all belongings.
[2020-07-11 05:39] VITALS: BP 142/79
--- NOTE | 2020-07-11 15:30 | Diagnostic Imaging Report ---
Indication: Chest pain Technique: One view of the chest Comparison: none Findings: Lungs and pleural spaces are clear. Heart size is normal. Impression: No acute process
== END 2020-07-11 05:30 | disposition home or self-care (01) ==
LOC: EDBD 20:12 → EMR 20:25
DX: R10.84 Generalized abdominal pain (principal); F10.129 Alcohol abuse with intoxication, unspecified; I10 Essential (primary) hypertension; G40.909 Epilepsy, unspecified, not intractable, without status epilepticus
CPT/HCPCS: 36415; 71045; 80053; 81003; 83690; 85025; 85610; 85730; 96372; 96374; 96375; 96376; J2405; J2550; S0028; Z7502; 99284